=== PATIENT | male | born 2000 | race Caucasian/White ===

== ENCOUNTER 2020-11-04 16:06 | Inpatient (IN) | payer OTHER ==
[~2020-11-04] VITALS: Ht 172.7 cm; Wt 104.5 kg
[2020-11-04 16:11] VITALS: Ht 172.7 cm; Wt 104.5 kg
[2020-11-04 17:23] LABS: CALCIUM 8.8 mg/dL (8.5-10.1); CARBON DIOXIDE 27.5 mmol/L (21-32); CHLORIDE SERUM 102 mmol/L (98-107); CREATININE SERUM 0.8 mg/dL (0.7-1.3); GFR1 > 60 mL/min; GLUCOSE SERUM 91 mg/dL (74-106); POTASSIUM SERUM 3.6 mmol/L (3.5-5.1); SODIUM SERUM 137 mmol/L (136-145)
[2020-11-04 17:26] LABS: BASOPHIL % 0.6 % (0.2-1.5); RED CELL DISTRIBUTION WIDTH 12.9 % (12.1-16.2)
[2020-11-04 17:27] LABS: ALKALINE PHOSPHATASE 74 U/L (46-116); ALT/SGPT 32 U/L (16-63); AMYLASE 58 U/L (25-115); AST/SGOT 20 U/L (15-37); BILIRUBIN TOTAL 0.2 mg/dL (0.20-1.00); LIPASE 125 IU/L (73-393); TOTAL PROTEIN, SERUM 7.2 g/dL (6.4-8.2)
[2020-11-04 17:28] LABS: ALBUMIN 3.3 g/dL (3.4-5.0)
[2020-11-04 17:31] LABS: UA SPECIFIC GRAVITY 1.025 (1.005-1.035); microscopic required? YES; urine erythrocyte TRACE (NEGATIVE)
[2020-11-04 17:33] LABS: PLATELET COUNT 411 x10^3mcL (152-348)
[2020-11-04 21:25] LABS: T3 TOTAL 1.42 ng/mL
[2020-11-04 21:35] LABS: FREE T4 1.28 ng/dL (0.76-1.46); FREE THYROXINE INDEX 2.5 ug/dL (1.4-4.5)
[2020-11-04 21:59] LABS: CHOLESTEROL/HDL RATIO 3.6
[2020-11-05 01:32] VITALS: BP 137/75
[2020-11-05 05:01] VITALS: BP 129/77
[2020-11-05 07:54] LABS: BASOPHIL % 0.5 % (0.2-1.5); PLATELET COUNT 362 x10^3mcL (152-348); RED CELL DISTRIBUTION WIDTH 12.7 % (12.1-16.2)
[2020-11-05 08:11] LABS: CALCIUM 8.4 mg/dL (8.5-10.1); CARBON DIOXIDE 22.3 mmol/L (21-32); CHLORIDE SERUM 105 mmol/L (98-107); CREATININE SERUM 0.7 mg/dL (0.7-1.3); GFR1 > 60 mL/min; GLUCOSE SERUM 84 mg/dL (74-106); MAGNESIUM 2.2 mg/dL (1.8-2.4); PHOSPHOROUS 3.5 mg/dL (2.5-4.9); SODIUM SERUM 138 mmol/L (136-145)
[2020-11-05 08:24] VITALS: BP 131/80
[2020-11-05 12:11] VITALS: BP 127/62
[2020-11-05 14:42] LABS: AMPHETAMINE QUAL UR NONE DETECTED (See below)
[2020-11-05 16:51] VITALS: BP 139/78
[2020-11-05 20:44] VITALS: BP 137/71
[2020-11-06 05:48] VITALS: BP 127/79
[2020-11-06 06:34] LABS: BASOPHIL % 0.2 % (0.2-1.5); PLATELET COUNT 361 x10^3mcL (152-348); RED CELL DISTRIBUTION WIDTH 12.6 % (12.1-16.2)
[2020-11-06 07:32] LABS: CALCIUM 9.2 mg/dL (8.5-10.1); CHLORIDE SERUM 102 mmol/L (98-107); CREATININE SERUM 0.8 mg/dL (0.7-1.3); GFR1 > 60 mL/min; GLUCOSE SERUM 87 mg/dL (74-106); POTASSIUM SERUM 4.4 mmol/L (3.5-5.1); SODIUM SERUM 139 mmol/L (136-145)
[2020-11-06 08:03] LABS: CARBON DIOXIDE 28.1 mmol/L (21-32)
[2020-11-06 08:20] VITALS: BP 133/75
[2020-11-06] MEDS ORDERED: LEVOFLOXACIN750 M1 PO (11:29)
[2020-11-06] MEDS ORDERED: COLACE100 MG PO (11:29)
[2020-11-06] MEDS ORDERED: FLA500 PO (11:31)
[2020-11-06 12:17] VITALS: BP 139/71
[2020-11-06 13:12] VITALS: BP 139/71
== END 2020-11-06 15:30 | disposition home or self-care (01) | DRG 392 ==
LOC: ED 16:06 → MU 20:00
PROVIDERS: Emergency Medicine; ADMIT Family Medicine; ATTEND Family Medicine
DX: K57.20 Diverticulitis of large intestine with perforation and abscess without bleeding (principal); E44.1 Mild protein-calorie malnutrition; E66.01 Morbid (severe) obesity due to excess calories; Z20.822 Contact with and (suspected) exposure to COVID-19; Z68.33 Body mass index [BMI] 33.0-33.9, adult
CPT/HCPCS: 84439; G0378; J1956; J2270; J2405; J2543; J3490; J7030